=== PATIENT | male | born 1985 ===

== ENCOUNTER 2017-06-30 21:35 | Emergency (ER) | payer SELFPAY ==
[2017-06-30 22:08] VITALS: BP 120/78; PULSE 78; RESP 20; TEMP 98.6; O2SAT 99
--- NOTE | 2017-06-30 23:13 | C.PDOC ---
History Of Present Illness 31 yo male c/p right hand pain since yesterday. Ho notes that he picked up a piece of wound and in the wood punctured him. Today it became painful and swollen prompting ED visit. No change in sensation. No fever. No discharge. Time Seen by Provider: 06/30/17 22:15 Chief Complaint (Nursing): Upper Extremity Problem/Injury History Per: Patient, Family History/Exam Limitations: no limitations Onset/Duration Of Symptoms: Days (yesterday) Past Medical History Vital Signs: Last Vital Signs Temp 98.6 F 06/30/17 22:05 Pulse 78 06/30/17 22:05 Resp 20 06/30/17 22:05 BP 120/78 06/30/17 22:05 Pulse Ox 99 06/30/17 23:15 Family History: States: Unknown Family Hx - Social History Hx Alcohol Use: Yes Hx Substance Use: No - Immunization History Hx Tetanus Toxoid Vaccination: No Hx Influenza Vaccination: No Hx Pneumococcal Vaccination: No Review Of Systems Except As Marked, All Systems Reviewed And Found Negative. Musculoskeletal: Positive for: Hand Pain Physical Exam - Physical Exam Appears: Well, Non-toxic, No Acute Distress Skin: Warm, Dry Head: Atraumatic, Normacephalic Eye(s): bilateral: Normal Inspection, PERRL, EOMI Nose: Normal Oral Mucosa: Moist Neck: Normal, Normal ROM, Supple Chest: Symmetrical Respiratory: No Accessory Muscle Use Extremity: No Normal ROM (decreased ROM secondary to pain), Tenderness, Capillary Refill (< 2 sec), Swelling, Other ((+) puncture wound to ulnar aspect of right palm with mild swelling to 4th finger. No erythema . no discharge. No open wound. ) Pulses: Left Radial: Normal, Right Radial: Normal Neurological/Psych: Oriented x3, Normal Speech, Normal Motor, Normal Sensation ED Course And Treatment O2 Sat by Pulse Oximetry: 99 - Other Rad right 4th finger XR X-Ray: Interpreted by Me, Viewed By Me Interpretation: No fx or dislocation Progress Note: Instructed RICE and wound check in 2 days. Discussed signs of concern to treturn to ER . Disposition - Disposition Referrals: Cyrus Mcclelland MD [Staff Provider] - Disposition: HOME/ ROUTINE Disposition Time: 23:11 Condition: STABLE Additional Instructions: Elevate and ice the area. Wound check in 2 days. Return to ER if symptoms persist or worsen including increased swelling, redness, or fever. Prescriptions: Clindamycin [Cleocin] 300 mg PO Q6 #28 cap Ibuprofen [Motrin] 600 mg PO Q6 PRN #20 tab PRN Reason: Pain, Mild (1-3) Instructions: Puncture Wound (ED) Forms: [facility] (Urdu) - Clinical Impression Clinical Impression: Puncture wound of right hand
--- NOTE | 2017-07-01 09:19 | RAD ---
PROCEDURE: Right Index finger radiographs. HISTORY: pain COMPARISON: None. TECHNIQUE: AP radiograph of the right hand, as well as spot oblique and lateral images of index finger were obtained. FINDINGS: RIGHT INDEX FINGER: Normal right index finger, without fracture or focal lesion. Remainder of the right hand (as seen on the AP view) grossly intact. JOINTS: Normal. SOFT TISSUES: Normal. OTHER FINDINGS: None. IMPRESSION: Normal right index finger radiographs.
== END 2017-06-30 23:34 | disposition home or self-care (01) ==
LOC: C.ER 21:35
DX: S61.431A Puncture wound without foreign body of right hand, initial encounter (principal); W45.8XXA Other foreign body or object entering through skin, initial encounter